=== PATIENT | male | born 2000 | race Caucasian/White ===

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

== ENCOUNTER 2022-06-08 13:11 | Emergency (ER) | payer OTHER ==
[2022-06-08] MEDS ORDERED: Acetaminophen 500 MG TAB ONE (14:48)
== END 2022-06-08 15:39 | disposition home or self-care (01) ==
LOC: ERS 13:11
DX: S06.0X9A Concussion with loss of consciousness of unspecified duration, initial encounter (principal); X58.XXXA Exposure to other specified factors, initial encounter
CPT/HCPCS: 70450